=== PATIENT | female | born 1935 | race Caucasian/White ===

== ENCOUNTER 2018-01-12 15:53 | Emergency (ER) | payer MEDICARE, BC ==
[2018-01-12 16:11] VITALS: BP 166/89
[2018-01-12] MEDS ORDERED: Ketorolac 30 MG/ML SDV IM ONE (16:16)
--- NOTE | 2018-01-12 16:20 | EDM.PDOC ---
ED HPI GENERAL MEDICAL PROBLEM - General Chief Complaint: Back Pain or Injury Stated Complaint: BACK PAIN Time Seen by Provider: 01/12/18 16:04 Source of Information: Reports: Patient History Limitations: Reports: No Limitations - History of Present Illness INITIAL COMMENTS - FREE TEXT/NARRATIVE: History of present illness: []Patient fell 7 days ago and was seen by Dr. Medrano at [facility] 2 days ago for a workup including x-rays of her back that were normal. She was discharged without pain medications and is complaining of continuing pain. She is not taking oufa-[id number] meds for pain. Patient also is complaining of constipation without abdominal pain or vomiting. Review of systems: As per history of present illness and below otherwise all systems reviewed and negative. Past medical history: As per history of present illness and as reviewed below otherwise noncontributory. Surgical history: As per history of present illness and as reviewed below otherwise noncontributory. Social history: No reported history of drug or alcohol abuse. Family history: As per history of present illness and as reviewed below otherwise noncontributory. Physical exam: General: Well developed, well nourished in NAD HEENT: Atraumatic, normocephalic, pupils reactive, negative for conjunctival pallor or scleral icterus, mucous membranes moist, throat clear, neck supple, nontender, trachea midline. Lungs: Clear to auscultation, breath sounds equal bilaterally, chest nontender. Heart: S1S2, regular, negative for clicks, rubs, or JVD. Abdomen: Soft, nondistended, nontender. Negative for masses or hepatosplenomegaly. Negative for costovertebral tenderness. Back: No focal vertebral tenderness in the lumbar area to palpation she has diffuse pain across her lumbar back. Pelvis: Stable nontender. Genitourinary: Deferred. Rectal: Deferred. Extremities: Atraumatic, negative for cords or calf pain. Neurovascular unremarkable. Neuro: Awake, alert, oriented. Cranial nerves II through XII unremarkable. Cerebellum unremarkable. Motor and sensory unremarkable throughout. Exam nonfocal. Straight leg raise negative, reflexes are intact, raises great toes Skin:warm and dry Diagnostics: None Therapeutics: Toradol IM, patient declined muscle relaxants ED Course: Patient's son is in the room and stated that he wants an MRI NOW and states "If I have to bring her back in the middle of the fucking night, I will be pissed." Impression: Low back pain without neurological deficits, Prescriptions: Tramadol Plan: Tylenol, ibuprofen for pain, use ice and/or heat to back. Increase fluids and take a stool softener. Follow-up with primary care. Definitive disposition and diagnosis as appropriate pending reevaluation and review of above. lower back Pain Score (Numeric/FACES): 10 - Related Data Allergies Allergy/AdvReac Type Severity Reaction Status Date / Time No Known Allergies Allergy Verified 01/12/18 16:06 Home Meds: Home Meds Aspirin [Adult Low Dose Aspirin EC] 81 mg PO DAILY 02/22/16 [History] Calcium Carb & Citrate/Vit D3 [Citracal + D ER] 1 tab PO DAILY 02/22/16 [History ] Raloxifene HCl 1 tab PO DAILY 02/22/16 [History] Vit B Cmplx 3/Fa/Vit C/Biotin [Jessica-Josefa Rx Tablet] 1 tab PO DAILY 02/22/16 [ History] traMADol HCl [Tramadol HCl] 50 mg PO Q6H PRN #16 tablet 01/12/18 [Rx] Past Medical History Other HEENT History: wears glasses Cardiovascular History: Reports: None Respiratory History: Reports: None Gastrointestinal History: Reports: Other (See Below) Genitourinary History: Reports: None DYE HOUSE HAND History: Reports: Musculoskeletal History: Reports: Fracture, Osteoporosis Other Musculoskeletal History: hx of bilateral fx wrists Neurological History: Other Neuro History: hx of motion sickness Psychiatric History: Reports: None Endocrine/Metabolic History: Reports: None Hematologic History: Reports: Blood Transfusion(s) Immunologic History: Reports: None Oncologic (Cancer) History: Reports: None Dermatologic History: Reports: None - Past Surgical History Female Surgical History: Reports: Section ED ROS GENERAL - Review of Systems Review Of Systems: ROS reveals no pertinent complaints other than HPI. ED EXAM,LOWER BACK PAIN/INJURY - Physical Exam Exam: See Below (See history of present illness) Course - Vital Signs Last Recorded V/S: Last Vital Signs Temp 97.9 F 01/12/18 16:07 Pulse 84 01/12/18 16:07 Resp 16 01/12/18 16:07 BP 166/89 H 01/12/18 16:07 Pulse Ox 97 01/12/18 16:07 - Orders/Labs/Meds Meds: Medications Discontinued Medications Generic Name Dose Route Start Last Admin Trade Name Katherine PRN Reason Stop Dose Admin Ketorolac Tromethamine 15 mg 01/12/18 16:16 Toradol IM 01/12/18 16:17 ONETIME ONE Departure - Departure Time of Disposition: 16:37 Disposition: Home, Self-Care 01 Condition: Good Clinical Impression: Low back pain Qualifiers: Chronicity: acute Back pain laterality: bilateral Sciatica presence: without sciatica Qualified Code(s): M54.5 - Low back pain Constipation Qualifiers: Constipation type: unspecified constipation type Qualified Code(s): K59.00 - Constipation, unspecified - Discharge Information *PRESCRIPTION DRUG MONITORING PROGRAM REVIEWED*: No *COPY OF PRESCRIPTION DRUG MONITORING REPORT IN PATIENT TERRANCE: No Referrals: PCP,None [Primary Care Provider] - Forms: ED Department Discharge Additional Instructions: The following information is given to patients seen in the emergency department who are being discharged to home. This information is to outline your options for follow-up care. We provide all patients seen in our emergency department with a follow-up referral. The need for follow-up, as well as the timing and circumstances, are variable depending upon the specifics of your emergency department visit. If you don't have a primary care physician on staff, we will provide you with a referral. We always advise you to contact your personal physician following an emergency department visit to inform them of the circumstance of the visit and for follow-up with them and/or the need for any referrals to a consulting specialist. The emergency department will also refer you to a specialist when appropriate. This referral assures that you have the opportunity for follow-up care with a specialist. All of these measure are taken in an effort to provide you with optimal care, which includes your follow-up. Under all circumstances we always encourage you to contact your private physician who remains a resource for coordinating your care. When calling for follow-up care, please make the office aware that this follow-up is from your recent emergency room visit. If for any reason you are refused follow-up, please contact the [facility] at and asked to speak to the emergency department charge nurse. Use ibuprofen and/or Tylenol for pain or tramadol for severe pain. Take stool softener or magnesium citrate for constipation as well as drink more fluids. Your primary care physician for scheduling further testing as indicated. [facility] [address] [place] [id number]
== END 2018-01-12 17:06 | disposition home or self-care (01) ==
LOC: MW.ED 15:53
DX: M54.5 Low back pain (principal); K59.00 Constipation, unspecified; Z79.82 Long term (current) use of aspirin; Z79.899 Other long term (current) drug therapy
CPT/HCPCS: 96372; 99283; J1885

== ENCOUNTER 2019-04-06 08:43 | Emergency (ER) | payer MEDICARE, BC ==
[2019-04-06] MEDS ORDERED: Diphtheria,Pertussis(Acell),Tetanus Vaccine 0.5 ML Syringe IM ONE (09:19)
--- NOTE | 2019-04-06 09:27 | CT ---
INDICATION: TRAUMA HISTORY: Trauma. COMPARISON: None. TECHNIQUE: CT of the brain. No intravenous contrast. Coronal/sagittal reconstruction images. FINDINGS: There is no acute intracranial hemorrhage. There is no shift of midline structures. There is no mass effect. The basilar cisterns are patent. There are no abnormal extra-axial fluid collections. There is no hyperdense MCA sign. The skull base and calvaria are intact. Mastoid air cells of both temporal bones are clear. Pterygoid plates are normal. There is a small amount of mucosal thickening/debris in the left maxillary antrum, image 7, series 202. IMPRESSION: 1. There is no acute intracranial hemorrhage, shift of midline structures, or mass effect. 2. The skull base and calvaria are intact. Dictated by Jv Muller MD @ 04/06/2019 9:26:43 AM Please note that all CT scans at this facility use dose modulation, iterative reconstruction, and/or weight-based dosing when appropriate to reduce radiation dose to as low as reasonably achievable. Dictated by: Jv Muller MD @ 04/06/2019 09:26:49 (Electronically Signed)
--- NOTE | 2019-04-06 09:31 | CT ---
INDICATION: TRAUMA HISTORY: Trauma. COMPARISON: None. TECHNIQUE: CT of the cervical spine. No intravenous contrast. Coronal/sagittal reconstruction images. FINDINGS: No fracture is identified in the cervical spine. 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 This is most evident at C5-6 and C6-7. The craniocervical junction and atlantoaxial joint are intact. No lytic or blastic bone lesions are seen. There is biapical scarring. Centrilobular emphysema. There is no apical pneumothorax. Intrathoracic trachea is patent. The soft tissue windows demonstrate no paravertebral hematoma. The thyroid gland is symmetric. IMPRESSION: 1. There is no acute fracture or malalignment in the cervical spine. 2. Degenerative disc and apophyseal joint disease. 3. No paravertebral hematoma or apical pneumothorax. Dictated by Jv Muller MD @ 04/06/2019 9:30:38 AM Please note that all CT scans at this facility use dose modulation, iterative reconstruction, and/or weight-based dosing when appropriate to reduce radiation dose to as low as reasonably achievable. Dictated by: Jv Muller MD @ 04/06/2019 09:30:55 (Electronically Signed)
--- NOTE | 2019-04-06 09:34 | EDM.PDOC ---
ED HPI GENERAL MEDICAL PROBLEM - General Chief Complaint: Trauma Stated Complaint: FELL AND HIT HEAD Time Seen by Provider: 04/06/19 08:56 - History of Present Illness INITIAL COMMENTS - FREE TEXT/NARRATIVE: HPI 83-year-old female presents requesting closure of a right forehead/temporal laceration sustained yesterday afternoon/evening, patient states that she struck the side of her head against her car door while getting her car in a hurry. Patient takes aspirin, no further blood thinners or antiplatelet agents. No headaches, changes in vision or hearing, denies further trauma. ROS with no recent constitutional symptoms. Exam HR 112, RR 18, BP one 6487, T 36.6F, SaO2 94% on room air. Gen: Pleasant, non-toxic appearing, resting comfortably HEENT: approximately 2.5 cm long near full-thickness avulsion laceration that is upwards of 4 mm wide and overlies the right lateral forehead/taoist immediately posterior to the eyebrow with a vertical orientation. Mild surrounding reactive erythema. Wound base with scabbing and granulation. Otherwise normocephalic, atraumatic, EOMI, PERRLA, TMs clear bilaterally. Resp: Clear to auscultation bilaterally. Unlabored respirations with a normal work of breathing. Card: Regular rate and rhythm. Extremities warm and well perfused. GI: Non-distended. : Deferred MSK: No visible deformities, strength and tone without visually appreciable deficit. No C-spine repartee spine tenderness palpation. Neuro: alert and oriented 3, no facial asymmetry, vision and hearing WNL. Heme/Lymph: Deferred Skin: Normal color with no visible lesions (other than noted above). Psych: Mood and affect appropriate. Imaging: CT head: no acute intracranial abnormality. CT C-spine: no acute traumatic abnormality. MDM Previous chart, nursing note, and vitals reviewed. A: 83-year-old female presents requesting closure of a right forehead/temporal laceration sustained yesterday afternoon/evening, patient states that she struck the side of her head against her car door while getting her car in a hurry. DDx & Evaluation: laceration healing well by secondary intention, given age of wound and patients age it is not felt to be in the patients best interest to attempt to revise the wound in the emergency department and close for healing by primary intention, this was discussed with the patient, the possibility of acceptable scarring when the wound is healed by secondary intention, and the ability to follow up with plastic surgery for scar revision should she be unhappy with the wound once it is healed. Tdap booster given. Imaging without evidence of clinically significant trauma. No further traumatic abnormalities appreciated history or exam. No features suggestive of concussion. Impression: laceration. - Related Data Allergies Allergy/AdvReac Type Severity Reaction Status Date / Time No Known Allergies Allergy Verified 04/06/19 08:46 Home Meds: Home Meds Aspirin 81 mg PO DAILY 04/06/19 [History] Raloxifene [Evista] 60 mg PO DAILY 04/06/19 [History] Review of Systems - Review of Systems Review Of Systems: See Below ED EXAM, GENERAL - Physical Exam Exam: See Below Course - Vital Signs Last Recorded V/S: Last Vital Signs Temp 36.6 C 04/06/19 08:44 Pulse 112 H 04/06/19 08:44 Resp 18 04/06/19 08:44 BP 164/87 H 04/06/19 08:44 Pulse Ox 94 L 04/06/19 08:44 - Orders/Labs/Meds Orders: Active Orders 24 hr Category Date Time Status Vaccines to be Administered [RC] PER UNIT ROUTINE Care 04/06/19 09:19 Active Meds: Medications Discontinued Medications Generic Name Dose Route Start Last Admin Trade Name Freq PRN Reason Stop Dose Admin Diphtheria/Tetanus/Acell Pertussis 0.5 ml 04/06/19 09:19 Adacel IM 04/06/19 09:20 .ONCE ONE Departure - Departure Time of Disposition: 09:34 Disposition: Home, Self-Care 01 Clinical Impression: Laceration - Discharge Information Additional Instructions: You were in seen in the Emergency Department for evaluation of laceration to your forehead. As we discussed, this wound is best left heal without sutures due to the age of the wound. Please keep your wound washed and covered. Did it develop redness, pain, swelling, discharge, or increase warmth please return immediately to the emergency department. Please read and follow all of the instructions below. Please follow up with your primary care physician within 48 hours for repeat evaluation of your asymptomatic hypertension, please also follow-up once your wound is finished healing if you wish to discuss scar revision. When calling for follow-up care, please make the office aware that this follow-up is from your recent emergency room visit. If for any reason you are refused follow-up, please contact the Emergency Department at and asked to speak to the emergency department charge nurse. High Blood Pressure (Hypertension) When you were in the emergency department you had an abnormally high blood pressure. High blood pressure can be without symptoms. However high blood pressure can lead to many medical problems including kidney disease, strokes, and heart attacks. Your blood pressure may have been elevated due to pain or the stress of being in the emergency department, however half of people with an elevated blood pressure in the emergency department have longterm problems with high blood pressure. Please see your primary care physician in 2-3 days for a repeat check of your blood pressure. This may help prevent many health serious problems in the future. Please return to the emergency department if you develop any of the following: chest pain, shortness of breath, new or severe headache, changes in vision or hearing, weakness, or if you are otherwise concerned about your health. Your care today was limited to identifying and treating emergent medical problems only. Many people have subtle differences in their test results that require follow up with their outpatient physician(s) to correctly determine if this represents a normal variation or concerning abnormality with respect to your specific health. The care given to you today was limited to identifying and treating emergent medical problems - you need to request a copy of all of your medical records from today's visit and follow up with your outpatient physician(s) to review both today's visit and your overall health. If you have any new symptoms or if you are at all concerned about your health please return immediately to the emergency department. Prescriptions: If you are uninsured or have financial difficulties with filling your prescription(s), you may consider using a free pharmacy discount service such as [employer] ([employer]) or [employer] ([employer] These services allow you to search for a medication on your phone (or computer) and obtain a coupon that usually has a significant discount from the list rojas at a pharmacy. Your physician as well as [facility] does not have a financial relationship with either of these services. You may also wish to speak with your physician to determine if lower cost prescriptions are possible. Obtaining primary care: 1. [facility] provides pediatrics (children), family medicine (children, adults, and some obstetrical care), and internal medicine (adults). Further specialty care is also available. Same day appointments are available. They may be contacted at [phone] and are open Saturday through Saturday 8 AM to 5 PM. The [facility] are located at [facility], [address] [place] [address]. 2. [facility] offers family medicine, internal medicine, womens health, and further specialty care. [facility] may be contacted at [phone]. [facility] is located at [address] [facility] [address]. 3. If you have health insurance, please also contact your insurer for a list of accepting providers under your policy, you may contact these providers for further health care. Occupational health: Work related injuries may consider following up with [facility], . Occupational health services are located at [address] [address] and are open Saturday through Saturday from 7: 30 am to 5:00 pm. Obstetrical and Gynecological Care: [facility], , Saturday through Saturday 8 AM to [address] [place] [address]. Eyecare: If you have an eye injury you should follow up with your state attorney or with [facility], at [phone] or [phone] , they are located at [address] [place] [address]. Sepsis Event Note - Evaluation Sepsis Screening Result: No Definite Risk - Focused Exam Vital Signs: Vital Signs Temp Pulse Resp BP Pulse Ox 04/06/19 08:44 36.6 C 112 H 18 164/87 H 94 L Date Exam was Performed: 04/06/19 Time Exam was Performed: 09:33 - My Orders Last 24 Hours: My Active Orders 04/06/19 09:19 Vaccines to be Administered [RC] PER UNIT ROUTINE - Assessment/Plan Last 24 Hours: My Active Orders 04/06/19 09:19 Vaccines to be Administered [RC] PER UNIT ROUTINE
[2019-04-06] MEDS ORDERED: Diphtheria/Tetanus Toxoids,Adult (Td) 0.5 ML Syringe IM ONE (09:50)
[2019-04-06 10:17] VITALS: BP 153/81; PULSE 100
== END 2019-04-06 10:10 | disposition home or self-care (01) ==
LOC: MW.ED 08:43 → MERGE 08:43 → MW.ED 10:10
DX: S01.81XA Laceration without foreign body of other part of head, initial encounter (principal); Z23 Encounter for immunization; Z79.82 Long term (current) use of aspirin; Z79.899 Other long term (current) drug therapy; W22.8XXA Striking against or struck by other objects, initial encounter
CPT/HCPCS: 70450; 70450-26; 72125; 72125-26; 90471; 90714; 99283; 99283-25

== ENCOUNTER 2019-04-21 07:25 | Inpatient (IN) | payer MEDICARE, BC ==
--- NOTE | 2019-04-21 07:40 | EDM.PDOC ---
ED HPI GENERAL MEDICAL PROBLEM - General Chief Complaint: Trauma Stated Complaint: FELL Time Seen by Provider: 04/21/19 07:30 Source of Information: Reports: Patient History Limitations: Reports: No Limitations - History of Present Illness INITIAL COMMENTS - FREE TEXT/NARRATIVE: This 83 year old female fell yesterday on a concrete floor injuring her right chest wall. She complains of right rib pain especially with breathing or with movement. She also complains of painful deep breathing. She denies any head or neck complaints. She denies any other problems at this time. Onset: Other (Yesterday) Location: Reports: Chest (right chest wall on the lateral aspects) Quality: Reports: Sharp (with movement and deep breathing) Severity: Mild (to moderate) Worsens with: Reports: Breathing, Movement Context: Reports: Trauma Associated Symptoms: Reports: No Other Symptoms RIght Ribcage Pain Score (Numeric/FACES): 10 - Related Data Allergies Allergy/AdvReac Type Severity Reaction Status Date / Time No Known Allergies Allergy Verified 04/21/19 07:41 Home Meds: Home Meds Aspirin [Adult Low Dose Aspirin EC] 81 mg PO DAILY 02/22/16 [History] Calcium Carb, Citrate/Vit D3 [Citracal + D ER] 1 tab PO DAILY 02/22/16 [History] Raloxifene HCl 1 tab PO DAILY 02/22/16 [History] Vit B Cmplx 3/Fa/Vit C/Biotin [Jessica-Josefa Rx Tablet] 1 tab PO DAILY 02/22/16 [ History] Morphine 2 mg IV ONETIME #1 syringe 04/21/19 [Rx] Ondansetron [Zofran] 2 mg IV ONETIME #1 mdv 04/21/19 [Rx] Past Medical History HEENT History: Reports: Other (See Below) Other HEENT History: wears glasses Cardiovascular History: Reports: None Respiratory History: Reports: None Gastrointestinal History: Reports: Other (See Below) Genitourinary History: Reports: 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: Musculoskeletal History: Reports: Fracture, Osteoporosis Other Musculoskeletal History: hx of bilateral fx wrists Neurological History: Other Neuro History: hx of motion sickness Psychiatric History: Reports: None Endocrine/Metabolic History: Reports: None Hematologic History: Reports: Blood Transfusion(s) Immunologic History: Reports: None Oncologic (Cancer) History: Reports: None Dermatologic History: Reports: None - Infectious Disease History Infectious Disease History: Reports: Mumps - Past Surgical History Female Surgical History: Reports: Section Social & Family History - Family History Family Medical History: Noncontributory - Caffeine Use Caffeine Use: Reports: Coffee Review of Systems - Review of Systems Review Of Systems: See Below Constitutional: Reports: No Symptoms Eyes: Reports: No Symptoms, Other (old healed laceration of right eyebrow) Ears: Reports: No Symptoms Nose: Reports: No Symptoms Mouth/Throat: Reports: No Symptoms Respiratory: Reports: Other (painful breathing (deep breathing) as well as movement) GI/Abdominal: Reports: No Symptoms Genitourinary: Reports: No Symptoms Musculoskeletal: Reports: No Symptoms Skin: Reports: No Symptoms Neurological: Reports: No Symptoms ED EXAM, GENERAL - Physical Exam Exam: See Below Exam Limited By: No Limitations General Appearance: Alert, WD/WN, No Apparent Distress Eye Exam: Bilateral Eye: EOMI, Normal Inspection, PERRL Ears: Normal External Exam, Normal Canal, Hearing Grossly Normal, Normal TMs Ear Exam: Bilateral Ear: Auricle Normal, Canal Normal, TM normal Nose: Normal Inspection, Normal Mucosa, No Blood Throat/Mouth: Normal Inspection, Normal Lips, Normal Teeth, Normal Gums, Normal Oropharynx, Normal Voice, No Airway Compromise Head: Atraumatic, Normocephalic. No: Facial Tenderness Neck: Normal Inspection, Supple, Non-Tender, Full Range of Motion. No: Carotid Bruit Respiratory/Chest: No Respiratory Distress, Lungs Clear, Normal Breath Sounds, No Accessory Muscle Use, Other (complains of tenderness over the lateral aspects of 6-10 ribs on the right.). No: Rales, Rhonchi, Wheezing Cardiovascular: Normal Peripheral Pulses, Regular Rate, Rhythm, No JVD, JVD, Systolic Murmur (systolic ejection murmur grade 2/6 best heard at the apex without radiation of murmur) Peripheral Pulses: 3+: Carotid (L), Carotid (R), Radial (L), Radial (R), Dorsalis Pedis (L), 4+: Dorsalis Pedis (R) GI/Abdominal: Normal Bowel Sounds, Soft, Non-Tender, No Organomegaly, No Distention, No Abnormal Bruit, No Mass (Female) Exam: Deferred Rectal (Female) Exam: Deferred Back Exam: Normal Inspection, Full Range of Motion (normal for a 83 year old person). No: CVA Tenderness (L), CVA Tenderness (R) Extremities: Normal Inspection, Normal Range of Motion, Non-Tender, Normal Capillary Refill, No Pedal Edema Neurological: Alert, Oriented, CN II-XII Intact, Normal Cognition, Normal Gait, Normal Reflexes, No Motor/Sensory Deficits Skin Exam: Warm, Dry, Intact, Normal Color, No Rash Lymphatic: No Adenopathy Course - Vital Signs Text/Narrative:: I talked with Dr. Linton (radiologist) at 9:34AM. He states that she has a very tiny pneumothorax (trace) on the right side and only a very small amount of blood in the pleural area. He and I both feel that this does not warrant a chest tube of any kind. She also has four mildly displaced rib fractures of the lateral right 4 through 7th ribs. I talked with Dr. Celis at 10:36AM. I discussed with him the patient medical history and her diagnostic testing. I have suggested that perhaps the patient have a anesthesia consult for possible nerve blocks of her multiple fracture ribs. She will be admitted to Obs/Tele. The patient agrees with the admission plan along with her son. Last Recorded V/S: Last Vital Signs Temp 99.5 F 04/21/19 10:30 Pulse 118 H 04/21/19 10:30 Resp 18 04/21/19 10:30 BP 124/76 04/21/19 10:30 Pulse Ox 99 04/21/19 10:30 - Orders/Labs/Meds Orders: Active Orders 24 hr Category Date Time Status UA W/BROOKE RFLX IF INDICATED [URIN] Stat Lab 04/21/19 09:26 Ordered Labs: Laboratory Tests 04/21/19 04/21/19 04/21/19 Range/Units 09:25 09:25 09:25 WBC 11.32 H (4.0-11.0) K/uL RBC 3.82 L (4.30-5.90) M/uL Hgb 12.5 (12.0-16.0) g/dL Hct 36.3 (36.0-46.0) % MCV 95.0 (80.0-98.0) fL MCH 32.7 H (27.0-32.0) pg MCHC 34.4 (31.0-37.0) g/dL RDW Std Deviation 48.7 (28.0-62.0) fl RDW Coeff of Manish 14 (11.0-15.0) % Plt Count 264 (150-400) K/uL MPV 9.60 (7.40-12.00) fL Neut % (Auto) 86.3 H (48.0-80.0) % Lymph % (Auto) 9.5 L (16.0-40.0) % [place] % (Auto) 4.0 (0.0-15.0) % Eos % (Auto) 0.0 (0.0-7.0) % Baso % (Auto) 0.2 (0.0-1.5) % Neut # (Auto) 9.8 H (1.4-5.7) K/uL Lymph # (Auto) 1.1 (0.6-2.4) K/uL [place] # (Auto) 0.5 (0.0-0.8) K/uL Eos # (Auto) 0.0 (0.0-0.7) K/uL Baso # (Auto) 0.0 (0.0-0.1) K/uL Nucleated RBC % 0.0 /100WBC Nucleated RBCs # 0 K/uL INR 0.96 Sodium 133 L (136-145) mmol/L Potassium 3.9 (3.5-5.1) mmol/L Chloride 96 L (98-107) mmol/L Carbon Dioxide 25.0 (21.0-32.0) mmol/L BUN 8 (7.0-18.0) mg/dL Creatinine 0.8 (0.6-1.0) mg/dL Est Cr Clr Drug Dosing 45.42 mL/min Estimated GFR (MDRD) > 60.0 ml/min Glucose 104 (74-106) mg/dL Calcium 9.2 (8.5-10.1) mg/dL Total Bilirubin 0.6 (0.2-1.0) mg/dL AST 61 H (15-37) IU/L ALT 35 (14-63) IU/L Alkaline Phosphatase 56 (46-116) U/L Troponin I < 0.050 (0.000-0.056) ng/mL Total Protein 7.6 (6.4-8.2) g/dL Albumin 4.6 (3.4-5.0) g/dL Globulin 3.0 (2.6-4.0) g/dL Albumin/Globulin Ratio 1.5 (0.9-1.6) Meds: Medications Discontinued Medications Generic Name Dose Route Start Last Admin Trade Name Freq PRN Reason Stop Dose Admin Morphine Sulfate 2 mg 04/21/19 10:13 04/21/19 10:21 Morphine IVPUSH 04/21/19 10:14 2 mg ONETIME ONE Administration Ondansetron HCl 2 mg 04/21/19 10:13 04/21/19 10:21 Zofran IVPUSH 04/21/19 10:14 2 mg ONETIME ONE Administration Departure - Departure Time of Disposition: 10:48 Disposition: Refer to Observation Condition: Fair Clinical Impression: Multiple fractures of rib involving four or more ribs, Pneumothorax, right - Discharge Information *PRESCRIPTION DRUG MONITORING PROGRAM REVIEWED*: Yes *COPY OF PRESCRIPTION DRUG MONITORING REPORT IN PATIENT TERRANCE: Yes Prescriptions: Morphine 2 mg IV ONETIME #1 syringe Ondansetron [Zofran] 2 mg IV ONETIME #1 mdv Sepsis Event Note - Focused Exam Vital Signs: Vital Signs Temp Pulse Resp BP Pulse Ox Pulse Ox 04/21/19 10:30 99.5 F 118 H 18 124/76 99 04/21/19 09:28 95 04/21/19 07:25 97.7 F 104 H 17 144/78 H 94 L Date Exam was Performed: 04/21/19 Time Exam was Performed: 10:44 - My Orders Last 24 Hours: My Active Orders 04/21/19 09:26 UA W/BROOKE RFLX IF INDICATED [URIN] Stat - Assessment/Plan Last 24 Hours: My Active Orders 04/21/19 09:26 UA W/BROOKE RFLX IF INDICATED [URIN] Stat
--- NOTE | 2019-04-21 08:45 | CT ---
CT chest Technique: Multiple axial sections through the chest were obtained. Intravenous contrast was not utilized. Findings: Slightly high density right-sided pleural effusion is seen most likely representing blood. Atherosclerotic calcification seen within the thoracic aorta without aneurysm. Mediastinum and hilar region show no adenopathy. Moderate coronary artery calcification is seen. Small pneumothorax is noted anteriorly within the right lung. Left lung shows no pneumothorax or pleural effusion. Emphysematous change is noted within both lungs. No acute parenchymal change is seen. Subcutaneous air is noted within the right chest wall. Mildly displaced fractures are noted within the lateral right ribs involving the 4th, 5th, 6th and 7th ribs. Compression fracture which appears old is noted within L1. Mild anterior wedge deformities noted at T12 and L2 which also appear old. Impression: 1. 4 displaced rib fractures within the lateral right chest with subcutaneous air within the right chest wall as well as small anterior right-sided pneumothorax. Small hemothorax is also noted on the right side. 2. Compression deformities within the spine which are felt to be old. 3. No pulmonary contusion is seen. Emphysematous changes are present. Diagnostic code #5 This report was dictated in [place] Standard Time
[2019-04-21 10:05] LABS: BLOOD UREA NITROGEN,BUN 8 mg/dL (7.0-18.0); CHLORIDE,CL 96 mmol/L (98-107); GLUCOSE RANDOM 104 mg/dL (74-106); POTASSIUM,K 3.9 mmol/L (3.5-5.1); SODIUM,NA 133 mmol/L (136-145)
[2019-04-21] MEDS ORDERED: Ondansetron 4 MG/2 ML SDV IVPUSH ONE (10:13)
[2019-04-21] MEDS ORDERED: Morphine 2 MG/ML SYRINGE IVPUSH ONE ×2 (10:13→12:27)
[2019-04-21] MEDS ORDERED: Acetaminophen 325 MG Tab PO PRN (13:40)
[2019-04-21] MEDS ORDERED: Ibuprofen 200 MG Tab PO PRN (13:40)
[2019-04-21] MEDS ORDERED: Morphine 2 MG/ML SYRINGE IVPUSH PRN (13:40)
[2019-04-21] MEDS ORDERED: Bupivacaine 0.5% 30 ML SDV ONE (14:07)
[2019-04-21] MEDS: Ondansetron 4 MG/2 ML SDV IVPUSH PRN ×2 (14:16→18:01)
--- NOTE | 2019-04-21 14:25 | CR ---
Chest: Portable AP view of the chest was obtained. Comparison: Prior chest CT performed earlier on the same day (7:56 AM Heart size is normal. Tortuous thoracic aorta is seen. Small right-sided pleural effusion is noted. Atelectasis also noted within the right lung base. Fractures are noted within the posterior 4th 5th and 6th ribs as well as 7th ribs which show displacement. Fractures are also noted within the lateral 4th, 5th, 6th and probably 7th ribs. Mild subcutaneous edema is seen. No left-sided rib fracture is seen. Very minimal apical pneumothorax is seen. Impression: 1. Numerous right-sided rib fractures occurring in 2 places within the ribs. 2. Small right-sided pleural effusion with right basilar atelectasis. 3. Minimal apical pneumothorax is noted. Diagnostic code #3 This report was dictated in [place] Standard Time
--- NOTE | 2019-04-21 14:26 | PCM.HP.2 ---
H&P History of Present Illness - General Date of Service: 04/21/19 Admit Problem/Dx: Admission Diagnosis/Problem Admission Diagnosis/Problem Fracture of multiple ribs - History of Present Illness Initial Comments - Free Text/Narative: 83 yo female with pmh of osteoporosis who presents to the ED after falling last night at home. She fell from a standing position and landed on her right side. She reported pain immediately after on her right chest wall. She denies any shortness of breath, lightheadedness or fevers. In the ED she was discovered to have a four mildly displaced rib fractures and a tiny pneumothorax and hemothorax on CT of the chest. RIght Ribcage Pain Score (Numeric/FACES): 10 - Related Data Allergies/Adverse Reactions: Allergies Allergy/AdvReac Type Severity Reaction Status Date / Time No Known Allergies Allergy Verified 04/21/19 13:25 Home Medications: Home Meds Aspirin [Adult Low Dose Aspirin EC] 81 mg PO DAILY 02/22/16 [History] Calcium Carb, Citrate/Vit D3 [Citracal + D ER] 1 tab PO DAILY 02/22/16 [History] Raloxifene HCl 1 tab PO DAILY 02/22/16 [History] Vit B Cmplx 3/Fa/Vit C/Biotin [Jessica-Josefa Rx Tablet] 1 tab PO DAILY 02/22/16 [ History] Aspirin 81 mg PO DAILY 04/06/19 [History] Raloxifene [Evista] 60 mg PO DAILY 04/06/19 [History] Acetaminophen [Tylenol] 650 mg PO Q4H PRN tablet 04/24/19 [Rx] Docusate Sodium [Colace] 100 mg PO BID #60 cap 04/24/19 [Rx] Ondansetron [Zofran ODT] 4 mg SL Q6H PRN #30 tab.dis 04/24/19 [Rx] oxyCODONE 5 mg PO Q6H PRN #30 tablet 04/24/19 [Rx] polyethylene glycoL 3350 [MiraLAX] 17 gm PO DAILY #1 bottle 04/24/19 [Rx] Past Medical History HEENT History: Reports: Other (See Below) Other HEENT History: wears glasses Cardiovascular History: Reports: None Respiratory History: Reports: None Gastrointestinal History: Reports: Other (See Below) Other Gastrointestinal History: urgency Genitourinary History: Reports: 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: Musculoskeletal History: Reports: Fracture, Osteoporosis Other Musculoskeletal History: hx of bilateral fx wrists Neurological History: Other Neuro History: hx of motion sickness Psychiatric History: Reports: None Endocrine/Metabolic History: Reports: None Hematologic History: Reports: Blood Transfusion(s) Immunologic History: Reports: None Oncologic (Cancer) History: Reports: None Dermatologic History: Reports: None - Infectious Disease History Infectious Disease History: Reports: Mumps - Past Surgical History Head Surgeries/Procedures: Reports: None GI Surgical History: Reports: None Female Surgical History: Reports: Section Social & Family History - Family History Family Medical History: Noncontributory - Tobacco Use Smoking Status *Q: Former Smoker Used Tobacco, but Quit: Yes Month/Year Tobacco Last Used: 25 yrs ago Second Hand Smoke Exposure: No - Caffeine Use Caffeine Use: Reports: Coffee - Recreational Drug Use Recreational Drug Use: No H&P Review of Systems - Review of Systems: Review Of Systems: Comprehensive ROS is negative, except as noted in HPI. Exam - Exam Exam: See Below - Vital Signs Vital Signs: Last Vital Signs Temp 36.8 C 04/21/19 13:00 Pulse 110 H 04/21/19 13:00 Resp 18 04/21/19 13:00 BP 124/73 04/21/19 13:00 Pulse Ox 92 L 04/21/19 13:00 Weight: 51.7 kg - Exam General: Alert, Oriented Lungs: Clear to Auscultation, Normal Respiratory Effort, Other (mild subcu emphasema on right chest wall) Cardiovascular: Regular Rate, Regular Rhythm, Gallop/S3 GI/Abdominal Exam: Normal Bowel Sounds, Soft Extremities: Non-Tender, No Pedal Edema - Patient Data Lab Results Last 24 hrs: Laboratory Results - last 24 hr 04/21/19 04/21/19 04/21/19 Range/Units 09:25 09:25 09:25 WBC 11.32 H (4.0-11.0) K/uL RBC 3.82 L (4.30-5.90) M/uL Hgb 12.5 (12.0-16.0) g/dL Hct 36.3 (36.0-46.0) % MCV 95.0 (80.0-98.0) fL MCH 32.7 H (27.0-32.0) pg MCHC 34.4 (31.0-37.0) g/dL RDW Std Deviation 48.7 (28.0-62.0) fl RDW Coeff of Manish 14 (11.0-15.0) % Plt Count 264 (150-400) K/uL MPV 9.60 (7.40-12.00) fL Neut % (Auto) 86.3 H (48.0-80.0) % Lymph % (Auto) 9.5 L (16.0-40.0) % [place] % (Auto) 4.0 (0.0-15.0) % Eos % (Auto) 0.0 (0.0-7.0) % Baso % (Auto) 0.2 (0.0-1.5) % Neut # (Auto) 9.8 H (1.4-5.7) K/uL Lymph # (Auto) 1.1 (0.6-2.4) K/uL [place] # (Auto) 0.5 (0.0-0.8) K/uL Eos # (Auto) 0.0 (0.0-0.7) K/uL Baso # (Auto) 0.0 (0.0-0.1) K/uL Nucleated RBC % 0.0 /100WBC Nucleated RBCs # 0 K/uL INR 0.96 Sodium 133 L (136-145) mmol/L Potassium 3.9 (3.5-5.1) mmol/L Chloride 96 L (98-107) mmol/L Carbon Dioxide 25.0 (21.0-32.0) mmol/L BUN 8 (7.0-18.0) mg/dL Creatinine 0.8 (0.6-1.0) mg/dL Est Cr Clr Drug Dosing 45.42 mL/min Estimated GFR (MDRD) > 60.0 ml/min Glucose 104 (74-106) mg/dL Calcium 9.2 (8.5-10.1) mg/dL Total Bilirubin 0.6 (0.2-1.0) mg/dL AST 61 H (15-37) IU/L ALT 35 (14-63) IU/L Alkaline Phosphatase 56 (46-116) U/L Troponin I < 0.050 (0.000-0.056) ng/mL Total Protein 7.6 (6.4-8.2) g/dL Albumin 4.6 (3.4-5.0) g/dL Globulin 3.0 (2.6-4.0) g/dL Albumin/Globulin Ratio 1.5 (0.9-1.6) Result Diagrams: 04/24/19 04:53 04/24/19 04:53 Sepsis Event Note - Evaluation Sepsis Screening Result: No Definite Risk - Focused Exam Vital Signs: Vital Signs Temp Pulse Resp BP Pulse Ox Pulse Ox 04/21/19 13:00 36.8 C 110 H 18 124/73 92 L 04/21/19 10:30 37.5 C 118 H 18 124/76 99 04/21/19 09:28 95 04/21/19 07:25 36.5 C 104 H 17 144/78 H 94 L Date Exam was Performed: 04/29/19 Time Exam was Performed: 10:59 Problem List Initiated/Reviewed/Updated: Yes Orders Last 24hrs: Active Orders 24 hr Category Date Time Status Admission Status [Patient Status] [ADT] Stat ADT 04/21/19 10:55 Active Antiembolic Devices [RC] PER UNIT ROUTINE Care 04/21/19 13:42 Ordered Cardiac Monitoring [RC] CONTINUOUS Care 04/21/19 13:41 Ordered Notify Provider Consults [RC] ASDIRECTED Care 04/21/19 13:49 Ordered Oxygen Therapy [RC] CONTINUOUS Care 04/21/19 13:40 Ordered Pulse Oximetry [RC] CONTINUOUS Care 04/21/19 13:41 Ordered Up ad Bibi [RC] ASDIRECTED Care 04/21/19 13:40 Ordered VTE/DVT Education [RC] PER UNIT ROUTINE Care 04/21/19 13:40 Ordered Vital Signs [RC] Q4H Care 04/21/19 13:40 Ordered Consult to Physician [CONS] Routine Cons 04/21/19 13:47 Ordered Regular Diet [DIET] Diet 04/21/19 Breakfast Ordered CXR [Chest 1V Frontal] [CR] Routine Exams 04/21/19 13:37 Ordered BASIC METABOLIC PANEL,BMP [CHEM] AM Lab 04/22/19 05:11 Ordered CBC WITH AUTO DIFF [HEME] AM Lab 04/22/19 05:11 Ordered UA W/BROOKE RFLX IF INDICATED [URIN] Stat Lab 04/21/19 09:26 Ordered Acetaminophen [Tylenol] Med 04/21/19 13:40 Ordered 650 mg PO Q4H PRN Ibuprofen [Motrin] Med 04/21/19 13:40 Ordered 200 mg PO Q6H PRN Morphine Med 04/21/19 13:40 Ordered 2 mg IVPUSH Q2H PRN Ondansetron [Zofran] Med 04/21/19 13:40 Ordered 4 mg IVPUSH Q4H PRN oxyCODONE Med 04/21/19 13:40 Ordered 5 mg PO Q4H PRN Sequential Compression Device [OM.PC] Per Unit Routine Oth 04/21/19 13:41 Ordered Resuscitation Status Routine Resus Stat 04/21/19 13:40 Ordered Medication Orders Acetaminophen (Tylenol) 650 mg PO Q4H PRN PRN Reason: Pain (Mild 1-3)/fever Ibuprofen (Motrin) 200 mg PO Q6H PRN PRN Reason: Pain (mild 1-3) Morphine Sulfate (Morphine) 2 mg IVPUSH Q2H PRN PRN Reason: Pain (severe 7-10) Stop: 04/22/19 13:41 Ondansetron HCl (Zofran) 4 mg IVPUSH Q4H PRN PRN Reason: Nausea Last Admin: 04/21/19 14:16 Dose: 4 mg Oxycodone HCl (Oxycodone) 5 mg PO Q4H PRN PRN Reason: Pain (moderate 4-6) Assessment/Plan Comment:: 83 yo female admitted for multiple rib fractures and small pneumothorax. We will consult anesthesiaology for intercostal nerve block. We will continue pain management. For the small pneumothroax will place on supplemental oxygen and repeat CXR with close monitoring.
--- NOTE | 2019-04-21 14:59 | PCM.CONSN ---
- General Info Date of Service: 04/21/19 Admission Dx/Problem (Free Text): fall Pain Score: 9 - Review of Systems General: Reports: No Symptoms HEENT: Reports: No Symptoms Pulmonary: Reports: Shortness of Breath, Pleuritic Chest Pain Cardiovascular: Reports: No Symptoms Gastrointestinal: Reports: Nausea, Vomiting Genitourinary: Reports: No Symptoms Musculoskeletal: Reports: No Symptoms Skin: Reports: No Symptoms Neurological: Reports: No Symptoms Psychiatric: Reports: No Symptoms - Patient Data Vitals - Most Recent: Last Vital Signs Temp 98.3 F 04/21/19 13:00 Pulse 110 H 04/21/19 13:00 Resp 18 04/21/19 13:00 BP 124/73 04/21/19 13:00 Pulse Ox 96 04/21/19 14:40 Weight - Most Recent: 51.7 kg Lab Results Last 24 Hours: Laboratory Results - last 24 hr 04/21/19 04/21/19 04/21/19 Range/Units 09:25 09:25 09:25 WBC 11.32 H (4.0-11.0) K/uL RBC 3.82 L (4.30-5.90) M/uL Hgb 12.5 (12.0-16.0) g/dL Hct 36.3 (36.0-46.0) % MCV 95.0 (80.0-98.0) fL MCH 32.7 H (27.0-32.0) pg MCHC 34.4 (31.0-37.0) g/dL RDW Std Deviation 48.7 (28.0-62.0) fl RDW Coeff of Manish 14 (11.0-15.0) % Plt Count 264 (150-400) K/uL MPV 9.60 (7.40-12.00) fL Neut % (Auto) 86.3 H (48.0-80.0) % Lymph % (Auto) 9.5 L (16.0-40.0) % [place] % (Auto) 4.0 (0.0-15.0) % Eos % (Auto) 0.0 (0.0-7.0) % Baso % (Auto) 0.2 (0.0-1.5) % Neut # (Auto) 9.8 H (1.4-5.7) K/uL Lymph # (Auto) 1.1 (0.6-2.4) K/uL [place] # (Auto) 0.5 (0.0-0.8) K/uL Eos # (Auto) 0.0 (0.0-0.7) K/uL Baso # (Auto) 0.0 (0.0-0.1) K/uL Nucleated RBC % 0.0 /100WBC Nucleated RBCs # 0 K/uL INR 0.96 Sodium 133 L (136-145) mmol/L Potassium 3.9 (3.5-5.1) mmol/L Chloride 96 L (98-107) mmol/L Carbon Dioxide 25.0 (21.0-32.0) mmol/L BUN 8 (7.0-18.0) mg/dL Creatinine 0.8 (0.6-1.0) mg/dL Est Cr Clr Drug Dosing 45.42 mL/min Estimated GFR (MDRD) > 60.0 ml/min Glucose 104 (74-106) mg/dL Calcium 9.2 (8.5-10.1) mg/dL Total Bilirubin 0.6 (0.2-1.0) mg/dL AST 61 H (15-37) IU/L ALT 35 (14-63) IU/L Alkaline Phosphatase 56 (46-116) U/L Troponin I < 0.050 (0.000-0.056) ng/mL Total Protein 7.6 (6.4-8.2) g/dL Albumin 4.6 (3.4-5.0) g/dL Globulin 3.0 (2.6-4.0) g/dL Albumin/Globulin Ratio 1.5 (0.9-1.6) Med Orders - Current: Current Medications Acetaminophen (Tylenol) 650 mg PO Q4H PRN PRN Reason: Pain (Mild 1-3)/fever Ibuprofen (Motrin) 200 mg PO Q6H PRN PRN Reason: Pain (mild 1-3) Morphine Sulfate (Morphine) 2 mg IVPUSH Q2H PRN PRN Reason: Pain (severe 7-10) Stop: 04/22/19 13:41 Ondansetron HCl (Zofran) 4 mg IVPUSH Q4H PRN PRN Reason: Nausea Last Admin: 01/14/20 14:16 Dose: 4 mg Oxycodone HCl (Oxycodone) 5 mg PO Q4H PRN PRN Reason: Pain (moderate 4-6) Discontinued Medications Bupivacaine HCl (Marcaine 0.5%) Confirm Administered Dose 30 ml .ROUTE .STK-MED ONE Stop: 04/21/19 14:08 Morphine Sulfate (Morphine) 2 mg IVPUSH ONETIME ONE Stop: 04/21/19 10:14 Last Admin: 04/21/19 10:21 Dose: 2 mg Morphine Sulfate (Morphine) 2 mg IVPUSH ONETIME ONE Stop: 04/21/19 12:28 Last Admin: 04/21/19 12:34 Dose: 2 mg Ondansetron HCl (Zofran) 2 mg IVPUSH ONETIME ONE Stop: 04/21/19 10:14 Last Admin: 04/21/19 10:21 Dose: 2 mg Sepsis Event Note - Evaluation Sepsis Screening Result: No Definite Risk - Focused Exam Vital Signs: Vital Signs Temp Pulse Resp BP Pulse Ox Pulse Ox Pulse Ox 04/21/19 14:40 96 04/21/19 14:39 98 04/21/19 13:00 98.3 F 110 H 18 124/73 92 L 92 L 04/21/19 10:30 99.5 F 118 H 18 124/76 99 04/21/19 09:28 95 04/21/19 07:25 97.7 F 104 H 17 144/78 H 94 L Date Exam was Performed: 04/21/19 Time Exam was Performed: 14:56 Consult PN Assessment/Plan Procedures: Procedures COMPLETE CBC W/AUTO DIFF WBC (01/13/18) COMPREHEN METABOLIC PANEL (01/13/18) DIAGNOSTIC COLONOSCOPY (02/24/16) ECHO EXAM OF ABDOMEN (09/19/15) EMERGENCY DEPT VISIT (01/13/18) EMERGENCY DEPT VISIT (01/12/18) HYDRATE IV INFUSION ADD-ON (01/13/18) OFFICE/OUTPATIENT VISIT EST (11/03/13) ROUTINE VENIPUNCTURE (01/13/18) THER/PROPH/DIAG INJ IV PUSH (01/13/18) THER/PROPH/DIAG INJ SC/IM (01/12/18) URINALYSIS AUTO W/SCOPE (01/13/18) URINE BACTERIA CULTURE (11/03/13) X-RAY EXAM COMPLETE ABDOMEN (01/13/18) X-RAY XM COLON 1CNTRST STD (02/24/16) Problem List Initiated/Reviewed/Updated: Yes Plan: Intercostal block
--- NOTE | 2019-04-21 15:10 | PCM.SN ---
- Free Text/Narrative Note: Consent obtained for a right intercostal block. Chest x-ray reviewed showing rib fractures on the right at 4, 5, 6, 7. The patient was positioned in the sitting position at the edge of her bed. A timeout was performed. The 4, 5, 6, 7 ribs were identified on the right lateral to the spine and midline of the right scapula. The site was prepped with Chloraprep and sterile technique maintained. The right 7th rib was identified lateral to the spine and midline of the right scapula and a 22ga needle was placed until it hit bone and walked off bone until it was at the bottom aspect of the rib there was negative heme aspiration and negative parasthesia. 5mls of 0.5% bupivacaine was injected. The needle was removed intact. Next, the right 6th rib was identified lateral to the spine and midline of the right scapula and a 22ga needle was placed until it hit bone and walked off bone until it was at the bottom aspect of the rib there was negative heme aspiration and negative parasthesia. 5mls of 0.5% bupivacaine was injected. The needle was removed intact. Next, the right 5 rib was identified lateral to the spine and midline of the right scapula and a 22ga needle was placed until it hit bone and walked off bone until it was at the bottom aspect of the rib there was negative heme aspiration and negative parasthesia. 5mls of 0.5% bupivacaine was injected. The needle was removed intact. The right 4th rib was identified lateral to the spine and midline of the right scapula and a 22ga needle was placed until it hit bone and walked off bone until it was at the bottom aspect of the rib there was negative heme aspiration and negative parasthesia. 5mls of 0.5% bupivacaine was injected. The needle was removed intact. The patient tolerated the procedure well. No complications were reported. After 5 minutes the patient reported her pain in her right chest had decreased from a 9/10 to a 7/10.
[2019-04-22 06:00] LABS: BLOOD UREA NITROGEN,BUN 12 mg/dL (7.0-18.0); CARBON DIOXIDE,CO2 27.2 mmol/L (21.0-32.0); CHLORIDE,CL 96 mmol/L (98-107); GLUCOSE RANDOM 105 mg/dL (74-106); POTASSIUM,K 4.1 mmol/L (3.5-5.1); SODIUM,NA 133 mmol/L (136-145)
[2019-04-22] MEDS: oxyCODONE 5 MG Tab PO PRN ×3 (06:59→22:40)
--- NOTE | 2019-04-22 07:59 | CR ---
INDICATION: Pneumothorax follow-up. TECHNIQUE: One-view chest. COMPARISON: One view chest 04/21/2019. FINDINGS: Heart mediastinum are normal in size. Thoracic aorta is tortuous. Pulmonary vessels are normal. Lungs free of acute airspace consolidation. Partial resolution of a small right pleural effusion. Again noted are multiple right rib fractures. Stable small right apical pneumothorax. IMPRESSION: 1. Stable small right apical pneumothorax. 2. Partial resolution of a small right pleural effusion. 3. Multiple right rib fractures are known findings. Dictated by Sarah Marmolejo MD @ Apr 22 2019 7:55AM Signed by Dr. Sarah Marmolejo @ Apr 22 2019 7:58AM
[2019-04-22] MEDS: Ondansetron 4 MG/2 ML SDV IVPUSH PRN ×2 (10:16→14:10)
--- NOTE | 2019-04-22 10:18 | PCM.PN ---
- General Info Date of Service: 04/22/19 Admission Dx/Problem (Free Text): fall, rib fractures Subjective Update: Continues to have pain to R ribs. Hasn't really been out of bed much. Functional Status: Reports: Pain Controlled (worse with movement), Tolerating Diet, Ambulating, Urinating - Review of Systems General: Reports: No Symptoms. Denies: Fever HEENT: Reports: No Symptoms. Denies: Headaches, Sore Throat Pulmonary: Reports: No Symptoms. Denies: Shortness of Breath Cardiovascular: Reports: Chest Pain (r sided to rib fractures) Musculoskeletal: Reports: No Symptoms Skin: Reports: No Symptoms Neurological: Reports: No Symptoms Psychiatric: Reports: No Symptoms - Patient Data Vitals - Most Recent: Last Vital Signs Temp 98.7 F 04/22/19 07:51 Pulse 81 04/22/19 07:51 Resp 16 04/22/19 07:51 BP 105/57 L 04/22/19 07:51 Pulse Ox 94 L 04/22/19 07:51 Weight - Most Recent: 51.7 kg I&O - Last 24 Hours: Intake & Output 04/21/19 04/22/19 04/22/19 22:59 06:59 14:59 Intake Total 0 550 Output Total 20 800 Balance -20 -250 Lab Results Last 24 Hours: Laboratory Results - last 24 hr 04/21/19 04/21/19 04/22/19 Range/Units 09:25 20:00 05:10 WBC 9.70 (4.0-11.0) K/uL RBC 3.68 L (4.30-5.90) M/uL Hgb 11.8 L (12.0-16.0) g/dL Hct 35.4 L (36.0-46.0) % MCV 96.2 (80.0-98.0) fL MCH 32.1 H (27.0-32.0) pg MCHC 33.3 (31.0-37.0) g/dL RDW Std Deviation 50.5 (28.0-62.0) fl RDW Coeff of Manish 14 (11.0-15.0) % Plt Count 282 (150-400) K/uL MPV 10.40 (7.40-12.00) fL Neut % (Auto) 74.9 (48.0-80.0) % Lymph % (Auto) 8.9 L (16.0-40.0) % [place] % (Auto) 15.9 H (0.0-15.0) % Eos % (Auto) 0.1 (0.0-7.0) % Baso % (Auto) 0.2 (0.0-1.5) % Neut # (Auto) 7.3 H (1.4-5.7) K/uL Lymph # (Auto) 0.9 (0.6-2.4) K/uL [place] # (Auto) 1.5 H (0.0-0.8) K/uL Eos # (Auto) 0.0 (0.0-0.7) K/uL Baso # (Auto) 0.0 (0.0-0.1) K/uL Nucleated RBC % 0.0 /100WBC Nucleated RBCs # 0 K/uL Sodium 133 L (136-145) mmol/L Potassium 3.9 (3.5-5.1) mmol/L Chloride 96 L (98-107) mmol/L Carbon Dioxide 25.0 (21.0-32.0) mmol/L BUN 8 (7.0-18.0) mg/dL Creatinine 0.8 (0.6-1.0) mg/dL Est Cr Clr Drug Dosing 45.42 mL/min Estimated GFR (MDRD) > 60.0 ml/min Glucose 104 (74-106) mg/dL Calcium 9.2 (8.5-10.1) mg/dL Total Bilirubin 0.6 (0.2-1.0) mg/dL AST 61 H (15-37) IU/L ALT 35 (14-63) IU/L Alkaline Phosphatase 56 (46-116) U/L Troponin I < 0.050 (0.000-0.056) ng/mL Total Protein 7.6 (6.4-8.2) g/dL Albumin 4.6 (3.4-5.0) g/dL Globulin 3.0 (2.6-4.0) g/dL Albumin/Globulin Ratio 1.5 (0.9-1.6) Urine Color YELLOW Urine Appearance CLEAR Urine pH 6.5 (5.0-8.0) Ur Specific [place] 1.020 (1.001-1.035) Urine Protein NEGATIVE (NEGATIVE) mg/dL Urine Glucose (UA) NEGATIVE (NEGATIVE) mg/dL Urine Ketones 40 H (NEGATIVE) mg/dL Urine Occult Blood NEGATIVE (NEGATIVE) Urine Nitrite NEGATIVE (NEGATIVE) Urine Bilirubin NEGATIVE (NEGATIVE) Urine Urobilinogen 0.2 (<2.0) EU/dL Ur Leukocyte Esterase NEGATIVE (NEGATIVE) 04/22/19 Range/Units 05:10 WBC (4.0-11.0) K/uL RBC (4.30-5.90) M/uL Hgb (12.0-16.0) g/dL Hct (36.0-46.0) % MCV (80.0-98.0) fL MCH (27.0-32.0) pg MCHC (31.0-37.0) g/dL RDW Std Deviation (28.0-62.0) fl RDW Coeff of Manish (11.0-15.0) % Plt Count (150-400) K/uL MPV (7.40-12.00) fL Neut % (Auto) (48.0-80.0) % Lymph % (Auto) (16.0-40.0) % [place] % (Auto) (0.0-15.0) % Eos % (Auto) (0.0-7.0) % Baso % (Auto) (0.0-1.5) % Neut # (Auto) (1.4-5.7) K/uL Lymph # (Auto) (0.6-2.4) K/uL [place] # (Auto) (0.0-0.8) K/uL Eos # (Auto) (0.0-0.7) K/uL Baso # (Auto) (0.0-0.1) K/uL Nucleated RBC % /100WBC Nucleated RBCs # K/uL Sodium 133 L (136-145) mmol/L Potassium 4.1 (3.5-5.1) mmol/L Chloride 96 L (98-107) mmol/L Carbon Dioxide 27.2 (21.0-32.0) mmol/L BUN 12 (7.0-18.0) mg/dL Creatinine 0.8 (0.6-1.0) mg/dL Est Cr Clr Drug Dosing 45.01 mL/min Estimated GFR (MDRD) > 60.0 ml/min Glucose 105 (74-106) mg/dL Calcium 8.8 (8.5-10.1) mg/dL Total Bilirubin (0.2-1.0) mg/dL AST (15-37) IU/L ALT (14-63) IU/L Alkaline Phosphatase (46-116) U/L Troponin I (0.000-0.056) ng/mL Total Protein (6.4-8.2) g/dL Albumin (3.4-5.0) g/dL Globulin (2.6-4.0) g/dL Albumin/Globulin Ratio (0.9-1.6) Urine Color Urine Appearance Urine pH (5.0-8.0) Ur Specific [place] (1.001-1.035) Urine Protein (NEGATIVE) mg/dL Urine Glucose (UA) (NEGATIVE) mg/dL Urine Ketones (NEGATIVE) mg/dL Urine Occult Blood (NEGATIVE) Urine Nitrite (NEGATIVE) Urine Bilirubin (NEGATIVE) Urine Urobilinogen (<2.0) EU/dL Ur Leukocyte Esterase (NEGATIVE) Med Orders - Current: Current Medications Acetaminophen (Tylenol) 650 mg PO Q4H PRN PRN Reason: Pain (Mild 1-3)/fever Docusate Sodium (Colace) 100 mg PO BID DON Ibuprofen (Motrin) 200 mg PO Q6H PRN PRN Reason: Pain (mild 1-3) Morphine Sulfate (Morphine) 2 mg IVPUSH Q2H PRN PRN Reason: Pain (severe 7-10) Stop: 04/22/19 13:41 Last Admin: 04/22/19 04:29 Dose: 2 mg Ondansetron HCl (Zofran) 4 mg IVPUSH Q4H PRN PRN Reason: Nausea Last Admin: 04/22/19 10:16 Dose: 4 mg Oxycodone HCl (Oxycodone) 5 mg PO Q4H PRN PRN Reason: Pain (moderate 4-6) Last Admin: 04/22/19 06:59 Dose: 5 mg Discontinued Medications Bupivacaine HCl (Marcaine 0.5%) Confirm Administered Dose 30 ml .ROUTE .STK-MED ONE Stop: 04/21/19 14:08 Morphine Sulfate (Morphine) 2 mg IVPUSH ONETIME ONE Stop: 04/21/19 10:14 Last Admin: 04/21/19 10:21 Dose: 2 mg Morphine Sulfate (Morphine) 2 mg IVPUSH ONETIME ONE Stop: 04/21/19 12:28 Last Admin: 04/21/19 12:34 Dose: 2 mg Ondansetron HCl (Zofran) 2 mg IVPUSH ONETIME ONE Stop: 04/21/19 10:14 Last Admin: 04/21/19 10:21 Dose: 2 mg - Exam General: Alert, Oriented, Cooperative Lungs: Clear to Auscultation, Normal Respiratory Effort, Other (subcut ephysema improved to R chest) GI/Abdominal Exam: Normal Bowel Sounds, Soft, Non-Tender Extremities: Normal Inspection, Normal Range of Motion, Non-Tender, No Pedal Edema Neurological: No New Focal Deficit Psy/Mental Status: Alert, Normal Affect, Normal Mood Sepsis Event Note - Evaluation Sepsis Screening Result: No Definite Risk - Focused Exam Vital Signs: Vital Signs Temp Pulse Resp BP Pulse Ox 04/22/19 07:51 98.7 F 81 16 105/57 L 94 L 04/22/19 04:00 98.6 F 90 18 127/66 96 04/22/19 00:00 98.3 F 90 16 121/61 92 L Date Exam was Performed: 04/22/19 Time Exam was Performed: 11:27 - Problem List & Annotations (1) Multiple fractures of rib involving four or more ribs SNOMED Code(s): 7621351 Code(s): S22.49XA - MULTIPLE FRACTURES OF RIBS, UNSP SIDE, INIT FOR CLOS FX Status: Acute Current Visit: Yes (2) Pneumothorax, right SNOMED Code(s): 941093803 Code(s): J93.9 - PNEUMOTHORAX, UNSPECIFIED Status: Acute Current Visit: Yes (3) Osteoporosis SNOMED Code(s): 66738603 Code(s): M81.0 - AGE-RELATED OSTEOPOROSIS W/O CURRENT PATHOLOGICAL FRACTURE Status: Acute Current Visit: Yes - Problem List Review Problem List Initiated/Reviewed/Updated: Yes - My Orders Last 24 Hours: My Active Orders 04/22/19 08:37 Consult to Physical Therapy [PT Evaluation and Treatment] [CONS] Routine 04/22/19 08:40 IS (RT) [RT Incentive Spirometry] [RC] Q1HWA 04/22/19 10:00 Docusate Sodium [Colace] 100 mg PO BID 04/22/19 10:04 Consult to Physical Therapy [PT Evaluation and Treatment] [CONS] Routine 04/22/19 10:16 Patient Status [ADT] Stat - Plan Plan:: 83 yo female admitted for multiple rib fractures and small pneumothorax. 1. Rib fractures/pneumothorax: anesthesiology consulted for intercostal nerve block, performed yesterday afternoon, helped mildly with pain. Continues to need [place] and Morphine for pain. Consult PT for possible physiotaping for pain control and ambulationg. Small pneumothroax and hemothorax is stable on CXR, continue supplemental oxygen and repeat CXR in am with close monitoring. Encourage up to chair today and hourly IS. Continue Calcium supplementation. VTE prophylaxis: SCDs due to smal hemothorax Dispo: transition to inpatient
--- NOTE | 2019-04-22 10:22 | PCM.SN ---
- Free Text/Narrative Note: fall and pneumothorax and hemothorax, small, stable on repeat, hemodynamically stable; would continue pain management; pt would be hurting at least for 2 wks or more. swing bed? ok to have oral diet; no need for chesttube at the present status, will follow w you; dict [id number]
[2019-04-22] MEDS: Aspirin 81 MG Tab.EC PO SCH (11:25)
[2019-04-22] MEDS: Docusate Sodium 100 MG Cap PO SCH ×2 (11:25→21:01)
[2019-04-22] MEDS: BIOTIN PO SCH (11:32)
[2019-04-22] MEDS: VIT B CMPLX PO SCH (11:32)
[2019-04-22] MEDS: [UNRECOGNIZED DRUG - OTHER] PO SCH (11:32)
[2019-04-22] MEDS: Raloxifene 60 MG Tab PO SCH (12:37)
--- NOTE | 2019-04-22 13:00 | CONS ---
DATE OF CONSULTATION: 04/22/2019 DATE OF : 1935 PRIMARY CARE PHYSICIAN: Francois Medrano MD Consult was called, the patient was seen shortly after. At that time, the patient was sleeping comfortably, did not want to wake up the patient. The patient was seen the next morning. Consulting question is small pneumothorax and small hemothorax. HISTORY OF PRESENT ILLNESS: The patient is an 83-year-old lady, small built, petite lady, and with a past medical history of osteoporosis, who presented to the ED after sustained a fall at home. The patient immediately felt pain. Fell from a standing position, landed on the right side. ER workup shows that the patient has a small pneumothorax and small hemothorax of the chest. The patient subsequently got a block for pain management, and this morning, the patient remarked it worked very well, pain is mostly resolved. The patient also remarked that she had nausea yesterday, but there is no nausea right now. She has a breakfast tray, and she does have a good appetite. PAST MEDICAL HISTORY: Significant for no diabetes, AR, CVA, or hypertension. PAST SURGICAL HISTORY: x1 and normal vaginal delivery x1. ALLERGIES: Please refer to nursing for details. MEDICATIONS: Please refer to nursing for details. FAMILY HISTORY: Noncontributory. SOCIAL HISTORY: The patient is a former smoker. PHYSICAL EXAMINATION: GENERAL: A very pleasant lady, sitting on edge of bed, smiled to the doctor, in no acute distress. HEENT: Normocephalic and atraumatic. Sclerae anicteric. LUNGS: With breath sounds on both sides. The right side of the chest wall does not have any ecchymosis or bleeding. SKIN: Intact. SPINE: Fine, no tenderness. CHEST WALL: There is no crepitus. The cutaneous emphysema has resolved. IMAGING: Chest x-ray shows multiple rib fractures on both sides, floating ribs at 4, 5, 6, 7. On repeat chest x-ray, pneumothorax and a small blunting of the costophrenic angle are stable. IMPRESSION: Fall victim, sustained a small stable pneumothorax and with mildly displaced rib fractures. I agree with you, nerve block would be good treatment. For her situation, pain management is probably the biggest issue, and she is hemodynamically stable. We will continue to follow the patient with you. As always, thank you for the kind referral. ELEUTERIO AHN /[id number]
[2019-04-23] MEDS: oxyCODONE 5 MG Tab PO PRN ×3 (08:42→23:52)
[2019-04-23] MEDS: Aspirin 81 MG Tab.EC PO SCH (08:42)
[2019-04-23] MEDS: Docusate Sodium 100 MG Cap PO SCH ×2 (08:42→20:31)
[2019-04-23] MEDS: BIOTIN PO SCH (08:46)
[2019-04-23] MEDS: [UNRECOGNIZED DRUG - OTHER] PO SCH (08:46)
[2019-04-23] MEDS: VIT B CMPLX PO SCH (08:46)
[2019-04-23] MEDS: Polyethylene Glycol 3350 Powder 17 GM Packet PO SCH (10:06)
[2019-04-23] MEDS: Ondansetron 4 MG/2 ML SDV IVPUSH PRN (10:07)
[2019-04-23] MEDS: CALCIUM CARB CITRATE PO SCH (10:11)
[2019-04-23] MEDS: VIT D3 PO SCH (10:11)
[2019-04-23] MEDS: Raloxifene 60 MG Tab PO SCH (10:12)
--- NOTE | 2019-04-23 10:48 | PCM.PN ---
- General Info Date of Service: 04/23/19 Admission Dx/Problem (Free Text): fall, rib fractures Subjective Update[facility] became nauseated and dizzy with ambulation along with hypoxic. Son felt very nervous about discharge as she will be alone at home. She denies L sided chest pain. R chest hurts just under R breast and worse with movement of her arm. Reports no BM since Saturday Functional Status: Reports: Pain Controlled, Tolerating Diet, Ambulating, Urinating - Review of Systems General: Reports: No Symptoms HEENT: Reports: No Symptoms Pulmonary: Reports: Pleuritic Chest Pain. Denies: Cough, Wheezing Cardiovascular: Reports: Chest Pain (R sided) Gastrointestinal: Reports: No Symptoms. Denies: Abdominal Pain, Nausea, Vomiting Genitourinary: Reports: No Symptoms. Denies: Dysuria, Frequency, Burning Musculoskeletal: Reports: No Symptoms Skin: Reports: No Symptoms Neurological: Reports: No Symptoms Psychiatric: Reports: No Symptoms - Patient Data Vitals - Most Recent: Last Vital Signs Temp 98.4 F 04/23/19 07:00 Pulse 88 04/23/19 07:00 Resp 14 04/23/19 07:00 BP 99/63 04/23/19 07:00 Pulse Ox 94 L 04/23/19 07:00 Weight - Most Recent: 51.7 kg I&O - Last 24 Hours: Intake & Output 04/22/19 04/23/19 04/23/19 22:59 06:59 14:59 Intake Total 480 1501 Output Total 200 1600 Balance 280 -99 Med Orders - Current: Current Medications Acetaminophen (Tylenol) 650 mg PO Q4H PRN PRN Reason: Pain (Mild 1-3)/fever Aspirin (Halfprin) 81 mg PO DAILY [facility] Last Admin: 04/23/19 08:42 Dose: 81 mg Docusate Sodium (Colace) 100 mg PO BID DON Last Admin: 04/23/19 08:42 Dose: 100 mg Ibuprofen (Motrin) 200 mg PO Q6H PRN PRN Reason: Pain (mild 1-3) Ondansetron HCl (Zofran) 4 mg IVPUSH Q4H PRN PRN Reason: Nausea Last Admin: 04/23/19 10:07 Dose: 4 mg Oxycodone HCl (Oxycodone) 5 mg PO Q4H PRN PRN Reason: Pain (moderate 4-6) Last Admin: 04/23/19 08:42 Dose: 5 mg Calcium Carb, Citrate/Vit D3 [ Citracal + D Er] 1 Tab 1 each PO DAILY [facility] Last Admin: 04/23/19 10:11 Dose: 1 each Vit B Cmplx 3/Fa/Vit C/Biotin [Jessica-Josefa Rx Tablet] 1 Tab 1 each PO DAILY [facility] Last Admin: 04/23/19 08:46 Dose: Not Given Polyethylene Glycol (Miralax) 17 gm PO DAILY [facility] Last Admin: 04/23/19 10:06 Dose: 17 gm Raloxifene HCl (Evista) 60 mg PO DAILY [facility] Last Admin: 04/23/19 10:12 Dose: 60 mg Discontinued Medications Bupivacaine HCl (Marcaine 0.5%) Confirm Administered Dose 30 ml .ROUTE .STK-MED ONE Stop: 04/21/19 14:08 Morphine Sulfate (Morphine) 2 mg IVPUSH ONETIME ONE Stop: 04/21/19 10:14 Last Admin: 04/21/19 10:21 Dose: 2 mg Morphine Sulfate (Morphine) 2 mg IVPUSH ONETIME ONE Stop: 04/21/19 12:28 Last Admin: 04/21/19 12:34 Dose: 2 mg Morphine Sulfate (Morphine) 2 mg IVPUSH Q2H PRN PRN Reason: Pain (severe 7-10) Stop: 04/22/19 13:41 Last Admin: 04/22/19 04:29 Dose: 2 mg Ondansetron HCl (Zofran) 2 mg IVPUSH ONETIME ONE Stop: 04/21/19 10:14 Last Admin: 04/21/19 10:21 Dose: 2 mg - Exam General: Alert, Oriented, Cooperative, No Acute Distress Lungs: Normal Respiratory Effort, Decreased Breath Sounds, Other (subcut emphysema improved to R) Cardiovascular: Regular Rate, Regular Rhythm GI/Abdominal Exam: Normal Bowel Sounds, Soft, Non-Tender Extremities: Normal Inspection, Normal Range of Motion, Non-Tender, No Pedal Edema Neurological: No New Focal Deficit Psy/Mental Status: Alert, Normal Affect, Normal Mood Sepsis Event Note - Evaluation Sepsis Screening Result: No Definite Risk - Focused Exam Vital Signs: Vital Signs Temp Pulse Resp BP Pulse Ox 04/23/19 07:00 98.4 F 88 14 99/63 94 L 04/23/19 03:40 98.4 F 83 18 103/56 L 93 L 04/23/19 00:00 98.5 F 82 18 110/57 L 94 L Date Exam was Performed: 04/23/19 Time Exam was Performed: 13:17 - Problem List & Annotations (1) Multiple fractures of rib involving four or more ribs SNOMED Code(s): 0894311 Code(s): S22.49XA - MULTIPLE FRACTURES OF RIBS, UNSP SIDE, INIT FOR CLOS FX Status: Acute Current Visit: Yes (2) Pneumothorax, right SNOMED Code(s): 564054267 Code(s): J93.9 - PNEUMOTHORAX, UNSPECIFIED Status: Acute Current Visit: Yes (3) Osteoporosis SNOMED Code(s): 33596748 Code(s): M81.0 - AGE-RELATED OSTEOPOROSIS W/O CURRENT PATHOLOGICAL FRACTURE Status: Acute Current Visit: Yes - Problem List Review Problem List Initiated/Reviewed/Updated: Yes - My Orders Last 24 Hours: My Active Orders 04/22/19 10:00 Docusate Sodium [Colace] 100 mg PO BID 04/22/19 10:04 Consult to Physical Therapy [PT Evaluation and Treatment] [CONS] Routine 04/22/19 10:16 Patient Status [ADT] Stat 04/22/19 10:45 Aspirin [Halfprin] 81 mg PO DAILY Patient's Own Medication [Ptom] 1 each PO DAILY Raloxifene [Evista] 60 mg PO DAILY 04/23/19 07:55 Chest 1V Frontal [CR] Urgent 04/23/19 09:00 Patient's Own Medication [Ptom] 1 each PO DAILY 04/23/19 09:15 Polyethylene Glycol 3350 [MiraLAX] 17 gm PO DAILY - Plan Plan:: 83 yo female admitted for multiple rib fractures and small pneumothorax. 1. Rib fractures/pneumothorax: Pain is well controlled with Oxycodone. PT placed physiotape for pain control which has helped. CXR no longer sees pneumothorax, stable small R pleural effusion and stable R sided rib fractures. Lavinia was very eager to go home today but was noted to be hypoxic with ambulating 3 ft, 75% on RA and became nauseated and dizzy. Son does not feel comfortable discharging home today, would like one more day. We did speak about the need for home oxygen on discharge, which she agreed to. Encourage up to chair today and hourly IS. Continue Calcium supplementation. VTE prophylaxis: SCDs due to small hemothorax Dispo: 1-2
--- NOTE | 2019-04-23 12:15 | CR ---
Chest: Portable view of the chest was obtained. Comparison: Prior chest x-ray of 04/22/19. Small persistent pleural effusion within the right base. Stable right sided rib fractures are noted. No pneumothorax is appreciated. Lungs otherwise are clear. Heart size is normal. Tortuous thoracic aorta is seen. Scoliosis is noted within the spine. Impression: 1. Numerous right-sided rib fractures are noted which are stable. 2. Stable small right sided pleural effusion. 3. No pneumothorax is appreciated. Diagnostic code #3 This report was dictated in [place] [employer] Time
--- NOTE | 2019-04-23 13:37 | PCM.SURGPN ---
- General Info Date of Service: 04/23/19 - Review of Systems General: Reports: No Symptoms Cardiovascular: Reports: No Symptoms (denied SOB, breathing still hurts, not as bad; avss) Gastrointestinal: Reports: No Symptoms - Patient Data Vitals - Most Recent: Last Vital Signs Temp 98.6 F 04/23/19 11:58 Pulse 83 04/23/19 11:58 Resp 18 04/23/19 11:58 BP 106/62 04/23/19 11:58 Pulse Ox 93 L 04/23/19 11:58 Weight - Most Recent: 113 lb 15.664 oz I&O - Last 24 Hours: Intake & Output 04/22/19 04/23/19 04/23/19 22:59 06:59 14:59 Intake Total 480 1501 Output Total 200 1600 Balance 280 -99 Med Orders - Current: Current Medications Acetaminophen (Tylenol) 650 mg PO Q4H PRN PRN Reason: Pain (Mild 1-3)/fever Aspirin (Halfprin) 81 mg PO DAILY [facility] Last Admin: 04/23/19 08:42 Dose: 81 mg Docusate Sodium (Colace) 100 mg PO BID [facility] Last Admin: 04/23/19 08:42 Dose: 100 mg Ibuprofen (Motrin) 200 mg PO Q6H PRN PRN Reason: Pain (mild 1-3) Ondansetron HCl (Zofran) 4 mg IVPUSH Q4H PRN PRN Reason: Nausea Last Admin: 04/23/19 10:07 Dose: 4 mg Oxycodone HCl (Oxycodone) 5 mg PO Q4H PRN PRN Reason: Pain (moderate 4-6) Last Admin: 04/23/19 13:25 Dose: 5 mg Calcium Carb, Citrate/Vit D3 [ Citracal + D Er] 1 Tab 1 each PO DAILY [facility] Last Admin: 04/23/19 10:11 Dose: 1 each Vit B Cmplx 3/Fa/Vit C/Biotin [Jessica-Josefa Rx Tablet] 1 Tab 1 each PO DAILY [facility] Last Admin: 04/23/19 08:46 Dose: Not Given Polyethylene Glycol (Miralax) 17 gm PO DAILY [facility] Last Admin: 04/23/19 10:06 Dose: 17 gm Raloxifene HCl (Evista) 60 mg PO DAILY [facility] Last Admin: 04/23/19 10:12 Dose: 60 mg Discontinued Medications Bupivacaine HCl (Marcaine 0.5%) Confirm Administered Dose 30 ml .ROUTE .STK-MED ONE Stop: 04/21/19 14:08 Morphine Sulfate (Morphine) 2 mg IVPUSH ONETIME ONE Stop: 04/21/19 10:14 Last Admin: 04/21/19 10:21 Dose: 2 mg Morphine Sulfate (Morphine) 2 mg IVPUSH ONETIME ONE Stop: 04/21/19 12:28 Last Admin: 04/21/19 12:34 Dose: 2 mg Morphine Sulfate (Morphine) 2 mg IVPUSH Q2H PRN PRN Reason: Pain (severe 7-10) Stop: 04/22/19 13:41 Last Admin: 04/22/19 04:29 Dose: 2 mg Ondansetron HCl (Zofran) 2 mg IVPUSH ONETIME ONE Stop: 04/21/19 10:14 Last Admin: 04/21/19 10:21 Dose: 2 mg - Exam Lungs: Clear to Auscultation Sepsis Event Note - Evaluation Sepsis Screening Result: No Definite Risk - Focused Exam Vital Signs: Vital Signs Temp Pulse Resp BP Pulse Ox 04/23/19 11:58 98.6 F 83 18 106/62 93 L 04/23/19 11:55 94 L 04/23/19 07:00 98.4 F 88 14 99/63 94 L 04/23/19 03:40 98.4 F 83 18 103/56 L 93 L Date Exam was Performed: 04/23/19 Time Exam was Performed: 13:35 - Problem List Review Problem List Initiated/Reviewed/Updated: Yes - My Orders Last 24 Hours: Active Orders 24 hr Category Date Time Status Patient's Own Medication [Ptom] Med 04/23/19 09:00 Active 1 each PO DAILY Polyethylene Glycol 3350 [MiraLAX] Med 04/23/19 09:15 Active 17 gm PO DAILY Medication Orders Acetaminophen (Tylenol) 650 mg PO Q4H PRN PRN Reason: Pain (Mild 1-3)/fever Aspirin (Halfprin) 81 mg PO DAILY [facility] Last Admin: 04/23/19 08:42 Dose: 81 mg Admin: 04/22/19 11:25 Dose: 81 mg Docusate Sodium (Colace) 100 mg PO BID [facility] Last Admin: 04/23/19 08:42 Dose: 100 mg Admin: 04/22/19 21:01 Dose: 100 mg Admin: 04/22/19 11:25 Dose: 100 mg Ibuprofen (Motrin) 200 mg PO Q6H PRN PRN Reason: Pain (mild 1-3) Ondansetron HCl (Zofran) 4 mg IVPUSH Q4H PRN PRN Reason: Nausea Last Admin: 04/23/19 10:07 Dose: 4 mg Admin: 04/22/19 14:10 Dose: 4 mg Admin: 04/22/19 10:16 Dose: 4 mg Admin: 04/21/19 18:01 Dose: 4 mg Admin: 04/21/19 14:16 Dose: 4 mg Oxycodone HCl (Oxycodone) 5 mg PO Q4H PRN PRN Reason: Pain (moderate 4-6) Last Admin: 04/23/19 13:25 Dose: 5 mg Admin: 04/23/19 08:42 Dose: 5 mg Admin: 04/22/19 22:40 Dose: 5 mg Admin: 04/22/19 11:25 Dose: 5 mg Admin: 04/22/19 06:59 Dose: 5 mg Calcium Carb, Citrate/Vit D3 [ Citracal + D Er] 1 Tab 1 each PO DAILY [facility] Last Admin: 04/23/19 10:11 Dose: 1 each Vit B Cmplx 3/Fa/Vit C/Biotin [Jessica-Josefa Rx Tablet] 1 Tab 1 each PO DAILY [facility] Last Admin: 04/23/19 08:46 Dose: Not Given Admin: 04/22/19 11:32 Dose: Polyethylene Glycol (Miralax) 17 gm PO DAILY [facility] Last Admin: 04/23/19 10:06 Dose: 17 gm Raloxifene HCl (Evista) 60 mg PO DAILY [facility] Last Admin: 04/23/19 10:12 Dose: 60 mg Admin: 04/22/19 12:37 Dose: 60 mg - Assessment Assessment (Free Text/Narrative):: Denied SOB; exam, B breadth sound, no cutaneous crepitus; ximena po; abd benign; cxr, no ptx; will sign off, recall if questions; thanks for the consult and care of this pleasant patient - Plan Plan (Free Text/Narrative):: Denied SOB; exam, B breadth sound, no cutaneous crepitus; ximena po; abd benign; cxr, no ptx; will sign off, recall if questions; thanks for the consult and care of this pleasant patient
[2019-04-24] MEDS: oxyCODONE 5 MG Tab PO PRN ×2 (03:56→16:12)
[2019-04-24 05:56] LABS: BLOOD UREA NITROGEN,BUN 11 mg/dL (7.0-18.0); CARBON DIOXIDE,CO2 32.3 mmol/L (21.0-32.0); CHLORIDE,CL 97 mmol/L (98-107); GLUCOSE RANDOM 95 mg/dL (74-106); SODIUM,NA 135 mmol/L (136-145)
[2019-04-24] MEDS ORDERED: Bisacodyl 10 MG Supp RECTAL ONE (08:22)
--- NOTE | 2019-04-24 09:13 | PCM.DCSUM1 ---
Discharge Summary - Hospital Course Brief History: 83 yo female with pmh of osteoporosis who presents to the ED after falling last night at home. She fell from a standing position and landed on her right side. She reported pain immediately after on her right chest wall. She denies any shortness of breath, lightheadedness or fevers. In the ED she was discovered to have a four mildly displaced rib fractures and a tiny pneumothorax and hemothorax on CT of the chest. Diagnosis: Stroke: No - Discharge Data Discharge Date: 04/24/19 Discharge Disposition: Home, W Home Health Agency 06 Condition: Stable - Referral to Home Health Date of Face to Face Encounter: 04/24/19 Reason for Homebound Status: Lavinia is homebound needing caregiver to help with leaving her house. She is in need of oxygen and assistance to ambulate. Primary Care Physician: Francois Medrano MD Skilled Need: Lavinia is in need of snf care to assist with monitoring of breathing and pain control after fall and subsequent rib fractures. Monitoring of pain control and pain medications effects. She is in need of PT to evaluate and treat for ambulation and gait stability along with pain management with physiotaping to chest for rib fractures. OT to evaluate and treat for ADLs and complete home safety evaluation. - Discharge Diagnosis/Problem(s) (1) Multiple fractures of rib involving four or more ribs SNOMED Code(s): 9610932 ICD Code: S22.49XA - MULTIPLE FRACTURES OF RIBS, UNSP SIDE, INIT FOR CLOS FX Status: Acute Current Visit: Yes (2) Pneumothorax, right SNOMED Code(s): 896418276 ICD Code: J93.9 - PNEUMOTHORAX, UNSPECIFIED Status: Acute Current Visit: Yes (3) Osteoporosis SNOMED Code(s): 39170874 ICD Code: M81.0 - AGE-RELATED OSTEOPOROSIS W/O CURRENT PATHOLOGICAL FRACTURE Status: Acute Current Visit: Yes - Patient Summary/Data Consults: Consultations 04/21/19 13:47 Consult to Physician [CONS] Routine 04/21/19 18:26 Consult to Physician [CONS] Routine 04/22/19 08:37 Consult to Physical Therapy [PT Evaluation and Treatment] [CONS] Routine 04/22/19 10:04 Consult to Physical Therapy [PT Evaluation and Treatment] [CONS] Routine - Discharge Plan *PRESCRIPTION DRUG MONITORING PROGRAM REVIEWED*: Yes *COPY OF PRESCRIPTION DRUG MONITORING REPORT IN PATIENT TERRANCE: Yes Prescriptions/Med Rec: Docusate Sodium [Colace] 100 mg PO BID #60 cap oxyCODONE 5 mg PO Q6H PRN #30 tablet PRN Reason: Pain (Moderate 4-6) Home Medications: Home Meds Aspirin [Adult Low Dose Aspirin EC] 81 mg PO DAILY 02/22/16 [History] Calcium Carb, Citrate/Vit D3 [Citracal + D ER] 1 tab PO DAILY 02/22/16 [History] Raloxifene HCl 1 tab PO DAILY 02/22/16 [History] Vit B Cmplx 3/Fa/Vit C/Biotin [Jessica-Josefa Rx Tablet] 1 tab PO DAILY 02/22/16 [ History] Aspirin 81 mg PO DAILY 04/06/19 [History] Raloxifene [Evista] 60 mg PO DAILY 04/06/19 [History] Acetaminophen [Tylenol] 650 mg PO Q4H PRN tablet 04/24/19 [Rx] Docusate Sodium [Colace] 100 mg PO BID #60 cap 04/24/19 [Rx] Polyethylene Glycol 3350 [MiraLAX] 17 gm PO DAILY #1 bottle 04/24/19 [Rx] oxyCODONE 5 mg PO Q6H PRN #30 tablet 04/24/19 [Rx] Patient Handouts: Docusate Sodium; Senna tablets or capsules, Oxycodone tablets or capsules, Pneumothorax, Rib Fracture, [id number] Referrals: Francois Medrano MD [Primary Care Provider] - 05/06/19 3:00 pm (Arrive 15 minutes early with a photo ID and insurance card. ) - Discharge Summary/Plan Comment DC Time >30 min.: No Discharge Summary/Plan Comment: Admitting Diagnoses: Fall Pneumothorax R sided Multiple rib fractures, R sided hypoxia Discharge Diagnoses: Fall Pneumothorax R sided- resolved. Multiple rib fractures, R sided hypoxia Other PMH: Osteoporosis Lavinia was admitted after a fall at home. She suffered from multiple r sided rib fractures, small pneumothorax and hypoxia. Pneumothorax did not need chest tube and resolved with oxygen therapy. She has history of smoking and likely some pulmonary disease. She was treated with Oxycodone and R sided intercostal block. She was also treated by PT with physio taping to help with pain to chest as well. She has done well. Pain is controlled. She is using IS every hour. Labwork stable. She is eager to go home. She continues to need oxygen therapy. I will send her home with oxygen 2 L NC to wear continuously due to rib fractures. She likely has underlying lung disease from smoking evidenced by CXR. She would need follow up with PFT when able for full evaluation. She is to continue Oxycodone every 6 hours PRN pain. She will have home health to monitor status at home including PT and OT. She is to return to ED or clinic if concerns should arise. - General Info Date of Service: 04/24/19 Admission Dx/Problem (Free Text: fall, rib fractures Subjective Update: Reports she is doing well. Mild pain to R ribs, but it is tolerable. No chest pain. Denies SOB or cough. Encouraged to bring IS home and use this every 1 hour. Functional Status: Reports: Pain Controlled, Tolerating Diet, Ambulating, Urinating - Review of Systems Pulmonary: Reports: No Symptoms. Denies: Shortness of Breath Cardiovascular: Reports: No Symptoms. Denies: Chest Pain Gastrointestinal: Reports: No Symptoms. Denies: Abdominal Pain, Constipation, Nausea, Vomiting Genitourinary: Reports: No Symptoms. Denies: Dysuria, Frequency Musculoskeletal: Reports: Other (R rib pain, right under R breast.) Skin: Reports: No Symptoms Neurological: Reports: No Symptoms Psychiatric: Reports: No Symptoms - Patient Data Vitals - Most Recent: Last Vital Signs Temp 98.5 F 04/24/19 03:00 Pulse 87 04/24/19 03:00 Resp 18 04/24/19 03:00 BP 126/68 04/24/19 03:00 Pulse Ox 95 04/24/19 03:00 Weight - Most Recent: 51.7 kg I&O - Last 24 hours: Intake & Output 04/23/19 04/24/19 04/24/19 22:59 06:59 14:59 Intake Total 500 610 Output Total 1040 1350 Balance -540 -740 Lab Results - Last 24 hrs: Laboratory Results - last 24 hr 04/24/19 04/24/19 Range/Units 04:53 04:53 WBC 7.21 (4.0-11.0) K/uL RBC 3.46 L (4.30-5.90) M/uL Hgb 11.4 L (12.0-16.0) g/dL Hct 34.3 L (36.0-46.0) % MCV 99.1 H (80.0-98.0) fL MCH 32.9 H (27.0-32.0) pg MCHC 33.2 (31.0-37.0) g/dL RDW Std Deviation 50.3 (28.0-62.0) fl RDW Coeff of Manish 14 (11.0-15.0) % Plt Count 224 (150-400) K/uL MPV 10.10 (7.40-12.00) fL Neut % (Auto) 61.7 (48.0-80.0) % Lymph % (Auto) 17.9 (16.0-40.0) % [place] % (Auto) 18.4 H (0.0-15.0) % Eos % (Auto) 1.4 (0.0-7.0) % Baso % (Auto) 0.6 (0.0-1.5) % Neut # (Auto) 4.5 (1.4-5.7) K/uL Lymph # (Auto) 1.3 (0.6-2.4) K/uL [place] # (Auto) 1.3 H (0.0-0.8) K/uL Eos # (Auto) 0.1 (0.0-0.7) K/uL Baso # (Auto) 0.0 (0.0-0.1) K/uL Nucleated RBC % 0.0 /100WBC Nucleated RBCs # 0 K/uL Sodium 135 L (136-145) mmol/L Potassium 4.0 (3.5-5.1) mmol/L Chloride 97 L (98-107) mmol/L Carbon Dioxide 32.3 H (21.0-32.0) mmol/L BUN 11 (7.0-18.0) mg/dL Creatinine 0.6 (0.6-1.0) mg/dL Est Cr Clr Drug Dosing 60.02 mL/min Estimated GFR (MDRD) > 60.0 ml/min Glucose 95 (74-106) mg/dL Calcium 8.9 (8.5-10.1) mg/dL Med Orders - Current: Current Medications Acetaminophen (Tylenol) 650 mg PO Q4H PRN PRN Reason: Pain (Mild 1-3)/fever Aspirin (Halfprin) 81 mg PO DAILY [facility] Last Admin: 04/23/19 08:42 Dose: 81 mg Docusate Sodium (Colace) 100 mg PO BID [facility] Last Admin: 04/23/19 20:31 Dose: 100 mg Ibuprofen (Motrin) 200 mg PO Q6H PRN PRN Reason: Pain (mild 1-3) Ondansetron HCl (Zofran) 4 mg IVPUSH Q4H PRN PRN Reason: Nausea Last Admin: 04/23/19 10:07 Dose: 4 mg Oxycodone HCl (Oxycodone) 5 mg PO Q4H PRN PRN Reason: Pain (moderate 4-6) Last Admin: 04/24/19 03:56 Dose: 5 mg Calcium Carb, Citrate/Vit D3 [ Citracal + D Er] 1 Tab 1 each PO DAILY [facility] Last Admin: 04/23/19 10:11 Dose: 1 each Vit B Cmplx 3/Fa/Vit C/Biotin [Jessica-Josefa Rx Tablet] 1 Tab 1 each PO DAILY [facility] Last Admin: 04/23/19 08:46 Dose: Not Given Polyethylene Glycol (Miralax) 17 gm PO DAILY [facility] Last Admin: 04/23/19 10:06 Dose: 17 gm Raloxifene HCl (Evista) 60 mg PO DAILY [facility] Last Admin: 04/23/19 10:12 Dose: 60 mg Discontinued Medications Bisacodyl (Dulcolax) 10 mg RECTAL ONETIME ONE Stop: 04/24/19 08:23 Bupivacaine HCl (Marcaine 0.5%) Confirm Administered Dose 30 ml .ROUTE .STK-MED ONE Stop: 04/21/19 14:08 Morphine Sulfate (Morphine) 2 mg IVPUSH ONETIME ONE Stop: 04/21/19 10:14 Last Admin: 04/21/19 10:21 Dose: 2 mg Morphine Sulfate (Morphine) 2 mg IVPUSH ONETIME ONE Stop: 04/21/19 12:28 Last Admin: 04/21/19 12:34 Dose: 2 mg Morphine Sulfate (Morphine) 2 mg IVPUSH Q2H PRN PRN Reason: Pain (severe 7-10) Stop: 04/22/19 13:41 Last Admin: 04/22/19 04:29 Dose: 2 mg Ondansetron HCl (Zofran) 2 mg IVPUSH ONETIME ONE Stop: 04/21/19 10:14 Last Admin: 04/21/19 10:21 Dose: 2 mg - Exam Quality Assessment: Reports: Supplemental Oxygen General: Reports: Alert, Oriented, Cooperative Lungs: Reports: Clear to Auscultation, Normal Respiratory Effort, Other (subcut ephysema gone, tape noted to R chest) Cardiovascular: Reports: Regular Rate, Regular Rhythm GI/Abdominal Exam: Normal Bowel Sounds, Soft, Non-Tender Back Exam: Reports: Normal Inspection, Full Range of Motion Extremities: Normal Inspection, Normal Range of Motion, Non-Tender Neurological: Reports: No New Focal Deficit Psy/Mental Status: Reports: Alert, Normal Affect, Normal Mood
[2019-04-24] MEDS: VIT D3 PO SCH (09:26)
[2019-04-24] MEDS: Aspirin 81 MG Tab.EC PO SCH (09:26)
[2019-04-24] MEDS: Polyethylene Glycol 3350 Powder 17 GM Packet PO SCH (09:26)
[2019-04-24] MEDS: Docusate Sodium 100 MG Cap PO SCH (09:26)
[2019-04-24] MEDS: CALCIUM CARB CITRATE PO SCH (09:26)
[2019-04-24] MEDS: [UNRECOGNIZED DRUG - OTHER] PO SCH (09:29)
[2019-04-24] MEDS: VIT B CMPLX PO SCH (09:29)
[2019-04-24] MEDS: BIOTIN PO SCH (09:29)
[2019-04-24] MEDS: Raloxifene 60 MG Tab PO SCH (10:01)
[2019-04-24 12:14] VITALS: BP 109/61; PULSE 92
== END 2019-04-24 16:00 | disposition home health service (06) | DRG 200 ==
LOC: MW.ED 07:25 → MW.MS 11:04 → OBSVTOIN 04-22 10:16 → MW.MS 04-22 11:48
PROVIDERS: ADMIT Internal Medicine; ATTEND Internal Medicine
DX: S27.0XXA Traumatic pneumothorax, initial encounter (principal); S22.41XA Multiple fractures of ribs, right side, initial encounter for closed fracture; W18.30XA Fall on same level, unspecified, initial encounter; S22.43XA Multiple fractures of ribs, bilateral, initial encounter for closed fracture; M81.0 Age-related osteoporosis without current pathological fracture; R09.02 Hypoxemia; W18.39XA Other fall on same level, initial encounter; Z79.82 Long term (current) use of aspirin; Z79.899 Other long term (current) drug therapy; Z87.891 Personal history of nicotine dependence; Y93.89 Activity, other specified; Y92.009 Unspecified place in unspecified non-institutional (private) residence as the place of occurrence of the external cause; Z99.81 Dependence on supplemental oxygen
CPT/HCPCS: 36415 ×2; 71045 ×2; 71250; 80048; 80053; 81003; 84484; 85025 ×2; 85610; A9270; J2270 ×3; J2405 ×3; J3490; 64420; 96374; 96375; 96376; 97110-GP; 97161-GP; 97530-GP; 99283; 99285-25; G0378

== ENCOUNTER 2023-10-03 07:58 | Day surgery (SDC) | payer MEDICARE, BC ==
[~2023-10-03 07:58] MED LIST: Sodium Chloride 0.9% 10 ML Syringe FLUSH PRN; Sodium Chloride 0.9% 2.5 ML Syringe FLUSH PRN; Sodium Chloride 0.9% 20 ML SDV IV PRN
[2023-10-03] MEDS: Lactated Ringers 1,000 ML IV SCH (08:20)
[2023-10-03] MEDS ORDERED: propofoL 50 ML ONE (08:50)
[2023-10-03] MEDS ORDERED: fentaNYL 100 MCG/2 ML SDV ONE (08:57)
[2023-10-03 11:23] VITALS: BP 121/74; PULSE 111
== END 2023-10-03 09:53 | disposition home or self-care (01) ==
LOC: MW.SDS 07:58
PROVIDERS: ATTEND Surgery
DX: K57.30 Diverticulosis of large intestine without perforation or abscess without bleeding (principal); K52.9 Noninfective gastroenteritis and colitis, unspecified; K92.1 Melena; R19.4 Change in bowel habit; Z79.82 Long term (current) use of aspirin; Z79.899 Other long term (current) drug therapy; Z87.891 Personal history of nicotine dependence
CPT/HCPCS: 45378; J2704; J3010; J7120